=== PATIENT | male | born 1960 | race Caucasian/White ===

== ENCOUNTER 2017-01-15 12:30 | Observation (INO) | payer OTHER ==
--- NOTE | ~2017-01-15 | TEE ---
Transesophageal Echocardiogram [id number] [place]. [address] NAME: BEATA SERRA : 62 STATUS : ADM Clark PAT#: [id number] AGE: 56 ADM/REG DATE : 01/15/17 MR#: [id number] REPORT SERV DATE: 01/16/17 DICTATED BY: LUIS MANUEL DATE: 01/16/17 REPORT STATUS : Draft TRANSCRIBED BY: JOSE DATE: 01/16/17 INDICATION: A 56-year-old man with atrial flutter. PROCEDURE: After questions were answered and consents were signed, the patient was sedated with propofol per Anesthesia. The probe was placed in the midesophagus, and images were obtained without difficulty. At the conclusion of the procedure, the probe was withdrawn. The patient was remained sedated to proceed with his EP procedure. 2D INTERPRETATION: The left ventricular size and function were normal. The mitral valve opened adequately. No significant prolapse was noted. There was no thrombus in the left atrium nor the left atrial appendage. The left atrial appendage was interrogated in multiple views. There was good contractility. The atrial appendage and the interatrial septum were intact. There was hyperdynamic motion of the interatrial septums related to respiration. Right atrium was normal in size. Tricuspid valve was grossly normal, right ventricle grossly normal, pulmonic valve grossly normal. No pericardial effusion was noted. No significant atherosclerotic plaquing was noted in the descending aorta or aortic arch. COLOR-FLOW: Mild mitral regurgitation with no aortic regurgitation, trace tricuspid regurgitation. DOPPLER: Doppler flow velocities in the left atrial appendage are in the 20 to 40 cm/second range. CONCLUSION: 1. NORMAL LEFT VENTRICULAR SYSTOLIC FUNCTION WITH ESTIMATED LVEF OF 60%. 2. NO OBVIOUS THROMBUS IN THE LEFT ATRIUM WITH A LEFT ATRIAL APPENDAGE WITH GOOD CONTRACTILITY OF THE LEFT ATRIAL APPENDAGE. WO/MODL Luis Manuel M.D., Ph.D, F.A.C.C. / [id number] CC: Darci Suh M.D.
--- NOTE | ~2017-01-15 | CN ---
Consultation Report [facility] [address] [place]. [address] NAME: BEATA SERRA : 62 STATUS : REG REF PAT#: [id number] AGE: 56 ADM/REG DATE : 01/15/17 MR#: [id number] REPORT SERV DATE: 01/16/17 DICTATED BY: CELIA SUH DATE: 01/16/17 REPORT STATUS : Draft TRANSCRIBED BY: MODDevika DATE: 01/16/17 DATE OF CONSULTATION: PRIMARY CARE PROVIDER: Dr. Frederick Castro. REFERRING DIGITAL ARTIST: Dr. Stanislav Harden. HISTORY: The patient is a 56-year-old white male with a history of hypertension, diabetes, and obesity, who underwent a ROHINI cardioversion in November of this year. He was treated with Eliquis initially, but discontinued this two weeks prior to this admission, because he had had no further episodes of atrial flutter. He got up on 01/14/2017 after having some GI distress the night before. When he bent over to tie his shoe, he noted acute onset of heart racing and palpitations consistent with his previous episode of atrial flutter. He noted some mild exertional symptoms and dyspnea. He went to the emergency room at [facility] for further evaluation. He was placed on a Cardizem drip and eventually transferred down to [facility] for further EP evaluation and study. The patient gives no other antecedent cardiac history with the exception of the arrhythmia. CURRENT HOME MEDICATIONS: Previously apixaban 5 b.i.d., carvedilol 6.25 b.i.d., glimepiride 2 mg before breakfast, lisinopril 10 per day, metformin 500 b.i.d. ALLERGIES OR INTOLERANCES: Iodinated contrast (nausea, vomiting). SOCIAL HISTORY: He is a remote smoker. FAMILY HISTORY: Positive for coronary artery disease in his mother. PAST MEDICAL HISTORY/REVIEW OF SYSTEMS: See above (hypertension, diabetes, and obesity are his main risk factors, probable underlying obstructive sleep apnea). PHYSICAL EXAMINATION: VITAL SIGNS: A 56-year-old white male, on admission heart rate 95 and irregular, blood pressure 132/80, pulse 70, respirations 18. SKIN: No xanthelasmas. HEENT: Normocephalic. There is no pallor. Sclerae white. NECK: JVD is not elevated. No carotid bruits. CHEST: No crackles. CARDIAC: S1 variable, S2 singular. ABDOMEN: Soft. EXTREMITIES: Without edema. No clubbing. NEUROLOGIC: No focal deficits. Consultation Report [address] [place] [address] NAME: BEATA SERRA : 62 STATUS : REG REF PAT#: [id number] AGE: 56 ADM/REG DATE : 01/15/17 MR#: [id number] REPORT SERV DATE: 01/16/17 DICTATED BY: CELIA SUH DATE: 01/16/17 REPORT STATUS : Draft TRANSCRIBED BY: JOSE DATE: 01/16/17 IMPRESSION: Recurrent atrial flutter. PLAN: EP mapping and CTI ablation. SATURNINO/JOSE Celia Suh M.D. / [id number] CC: Celia Suh M.D. , [facility]
--- NOTE | ~2017-01-15 | PUL ---
[address] [place]. [address] NAME: BEATA SERRA : 62 STATUS : ADM Clark PAT#: [id number] AGE: 56 ADM/REG DATE : 01/15/17 MR#: [id number] REPORT SERV DATE: 01/16/17 DICTATED BY: CHERYLE JOSEPH DATE: 01/16/17 REPORT STATUS : Draft TRANSCRIBED BY: MODL DATE: 01/16/17 PULMONARY FUNCTION TEST TEST: Pulse oximetry done on room air. DATA: Total recording time 6 hours 23 minutes, mean pulse 84, mean oxygen saturation 93%. Time with oxygen saturation less than 88% is 29 minutes, which is 7.6% of the night. INTERPRETATION: This is an abnormal study with nocturnal hypoxemia. Upon reviewing the SpO2 graph, there was concern of possible obstructive sleep apnea. If this is a concern clinically, I would recommend an outpatient polysomnogram. Otherwise, the patient meets the requirements for nocturnal oxygen supplementation for nocturnal hypoxia. HFQ/JOSE Cheryle Joseph MD / [id number] CC: Darci Suh M.D. UNKNOWN
[2017-01-15] MEDS ORDERED: ELIQUIS 5 MG TAB5 MG PO (13:23)
[2017-01-15] MEDS ORDERED: COREG6 PO (13:23)
[2017-01-15] MEDS ORDERED: AMARYL2 PO (13:24)
[2017-01-15] MEDS ORDERED: GLUCPH PO (13:26)
[2017-01-15] MEDS ORDERED: PRIN10 PO (13:26)
[2017-01-15 15:23] LABS: BASOPHILS 0.2 %; BASOPHILS ABSOLUTE 0.02 10/3/uL (0.0-0.16); EOSINOPHILS 2.4 %; EOSINOPHILS ABSOLUTE 0.19 10/3/uL (0.0-0.53); HEMOGLOBIN 16.9 g/dL (13.6-17.8); IMMATURE GRANULOCYTES 0.1 %; IMMATURE GRANULOCYTES ABSOLUTE 0.01 10/3/uL (0.0-0.11); LYMPHOCYTES 32.3 %; MEAN CORPUS HGB CONC 35.2 g/dL (32.0-36.0); MEAN CORPUSCULAR HEMOGLOB 31.4 pg (26.0-34.0); MEAN CORPUSCULAR VOLUME 89.1 fL (80-100); MEAN PLATELET VOLUME 9.6 fL (9.2-13.0); MONOCYTES 7.1 %; MONOCYTES ABSOLUTE 0.57 10/3/uL (0.21-1.20); NEUTROPHILS 57.9 %; NEUTROPHILS ABSOLUTE 4.66 10/3/uL (2.02-8.40); PLATELET COUNT 242 10/3/uL (150-400); RBC DISTRIBUTION WIDTH 12.9 % (12.0-16.0); RED CELL COUNT 5.39 10/6/uL (4.7-6.1); WHITE BLOOD CELLS 8.1 10/3/uL (4.5-10.5)
[2017-01-15 15:24] LABS: MANUAL DIFF NO %
[2017-01-15 15:39] LABS: BUN (BLOOD UREA NITROGEN) 14 MG/DL (6-23); CALCIUM, SERUM 9.2 MG/DL (8.5-10.4); CHLORIDE, SERUM 105 MMOL/L (96-112); CO2 (CARBON DIOXIDE) 27 MMOL/L (24-34); CREATININE 1.06 MG/DL (0.70-1.30); GFR AFRICAN AMERICAN 91 ML/MIN (>=60); GFR NON AFRICAN AMERICAN 79 ML/MIN (>=60); GLUCOSE, SERUM 255 MG/DL (60-99); POTASSIUM, SERUM 4.2 MMOL/L (3.5-5.3); SODIUM, SERUM 134 MMOL/L (135-148)
[2017-01-16 05:08] LABS: BASOPHILS 0.6 %; BASOPHILS ABSOLUTE 0.04 10/3/uL (0.0-0.16); EOSINOPHILS 3.5 %; EOSINOPHILS ABSOLUTE 0.22 10/3/uL (0.0-0.53); HEMATOCRIT 47.5 % (40.0-51.0); HEMOGLOBIN 16.9 g/dL (13.6-17.8); IMMATURE GRANULOCYTES 0.2 %; IMMATURE GRANULOCYTES ABSOLUTE 0.01 10/3/uL (0.0-0.11); LYMPHOCYTES 36.3 %; LYMPHOCYTES ABSOLUTE 2.25 10/3/uL (0.67-4.30); MEAN CORPUS HGB CONC 35.6 g/dL (32.0-36.0); MEAN CORPUSCULAR HEMOGLOB 31.5 pg (26.0-34.0); MEAN CORPUSCULAR VOLUME 88.6 fL (80-100); MEAN PLATELET VOLUME 9.6 fL (9.2-13.0); MONOCYTES 8.2 %; MONOCYTES ABSOLUTE 0.51 10/3/uL (0.21-1.20); NEUTROPHILS 51.2 %; NEUTROPHILS ABSOLUTE 3.17 10/3/uL (2.02-8.40); PLATELET COUNT 214 10/3/uL (150-400); RBC DISTRIBUTION WIDTH 12.4 % (12.0-16.0); RED CELL COUNT 5.36 10/6/uL (4.7-6.1); WHITE BLOOD CELLS 6.2 10/3/uL (4.5-10.5)
[2017-01-16 05:10] LABS: MANUAL DIFF NO %
[2017-01-16 05:16] LABS: BUN (BLOOD UREA NITROGEN) 15 MG/DL (6-23); CALCIUM, SERUM 8.9 MG/DL (8.5-10.4); CHLORIDE, SERUM 104 MMOL/L (96-112); CO2 (CARBON DIOXIDE) 27 MMOL/L (24-34); CREATININE 0.95 MG/DL (0.70-1.30); GFR AFRICAN AMERICAN 104 ML/MIN (>=60); GFR NON AFRICAN AMERICAN 90 ML/MIN (>=60); GLUCOSE, SERUM 258 MG/DL (60-99); POTASSIUM, SERUM 4.2 MMOL/L (3.5-5.3); SODIUM, SERUM 137 MMOL/L (135-148)
== END 2017-01-16 15:32 | disposition home or self-care (01) ==
LOC: SSU1 12:30
PROVIDERS: Internal Medicine Clinical Cardiac Electrophysiology; Nurse Practitioner
PROC: B246ZZZ Ultrasonography of Right and Left Heart (ICD-10-PCS; principal; 2017-01-15)
DX: I48.92 Unspecified atrial flutter (principal); E11.9 Type 2 diabetes mellitus without complications; I10 Essential (primary) hypertension; Z79.899 Other long term (current) drug therapy; Z88.8 Allergy status to other drugs, medicaments and biological substances; E66.9 Obesity, unspecified; Z87.891 Personal history of nicotine dependence
CPT/HCPCS: 80048; 82962; 83735; 85025; 93005; 93312; 93320; 93325; 93613; 93653; 94762; 96374; 96375; 96376; A9270-GY; C1732; C1781; C1893; C1894; G0378; J2370; J3010; J3475